=== PATIENT | female | born 2000 | race African-American/Black ===

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

== ENCOUNTER 2018-02-04 20:13 | Inpatient (IN) ==
[2018-02-04] MEDS ORDERED: Sodium Chlor 0.9% Inj 500 ML IV.SIG PRN (22:11)
[2018-02-04] MEDS ORDERED: fentaNYL Citrate Inj 100 MCG/2 ML Ampul IV.PUSH PRN ×2 (22:11)
[2018-02-04] MEDS ORDERED: Sod Chloride 0.9% Inj 1,000 ML IV.CONT PRN (22:11)
[2018-02-04] MEDS ORDERED: Oxytocin 30 Units/500ml Premix 30 UNITS/500 ML BAG IV.SIG ONE (22:11)
[2018-02-04] MEDS ORDERED: Naloxone Inj 0.4 MG/ML Vial IV.PUSH PRN (22:11)
[2018-02-04] MEDS ORDERED: Oxytocin 30 Units/500ml Premix 30 UNITS/500 ML BAG IV.SIG PRN (22:14)
[2018-02-04] MEDS ORDERED: Citric Acid/Sodium Citrate Liq 30 ML UDC PO SCH (22:15)
[2018-02-04 22:36] LABS: Baso % (Auto) 0.2 % (0.0-2.0); Eos # (Auto) 0.1 th/mm3 (0.0-0.4); Hematocrit 32.9 % (35.0-46.0); Hemoglobin 10.3 gm/dL (11.6-15.3); Lymph # (Auto) 2.3 th/mm3 (1.0-4.8); Mean Corpuscular HGB Conc 31.4 % (32.0-36.0); Mean Corpuscular Hemoglobin 21.1 pg (27.0-34.0); Mean Corpuscular Volume 67.2 fL (80.0-100.0); Mean Platelet Volume 10.3 fL (7.0-11.0); Mono # (Auto) 0.7 th/mm3 (0.0-0.9); Mono % (Auto) 8.5 % (0.0-8.0); Neut # (Auto) 5.3 th/mm3 (1.8-7.7); Neut % (Auto) 63.3 % (16.0-70.0); Platelet Count 213 th/mm3 (150-450); Red Cell Distribution Width 16.8 % (11.6-17.2); White Blood Count 8.4 th/mm3 (4.0-11.0)
[2018-02-04] MEDS ORDERED: Zolpidem Tartrate 5 MG Tablet PO ONE (22:36)
--- NOTE | 2018-02-04 22:36 | P.HPOB ---
History of Present Illness Primary Care Physician: NOT REQUIRED Chief Complaint: postdates History of Present Illness: 17 year old female at 41 weeks by ultrasound presents for induction of labor. No current complaints. Denies SOB, CP, TREJO, changes in vision. No loss of fluids, vaginal bleeding, decreased movement, or contractions. She has care at [facility] and was seen there on Tuesday and told to come in this evening for induction of labor. Her has been uncomplicated. She is GBS (+). She had trichomonas during , was treated, and then was retested and negative. No previous abnormal PAP smears. Weeks Gestation:: 41 Para: 0 : 1 Last menstrual period: 04/23/2017 - Inpatient Certification I certify that the inpatient services were ordered in accordance with Medicare regulations governing the order. This includes certification that hospital inpatient services are reasonable and necessary and in the case of services not specified as inpatient-only under 42 CFR 419.22(n), that they are appropriately provided as inpatient services in accordance to with the 2-midnight benchmark under 43 CFR 412.3(e) Estimated Total Length of Stay (Days): 2 Plans for Post Hospital Care: Home Review of Systems Constitutional: Denies chills Eyes: Denies change in vision Cardiovascular: Denies chest pain Respiratory: Denies shortness of breath Gastrointestinal: Denies abdominal pain Neurologic: Denies headache(s) PMFSH - Medical / Surgical Hx Neg / Unobtainable Medical Problems Denied: Yes Surgical History: No Previous Surgery - Tobacco History Smoking Status: Never smoker - Alcohol History How Often Do You Have a Drink Containing Alcohol: Never - Substance Use Type Marijuana Last Used: week ago Medications and Allergies Active Medications: Active Medications Citric Acid/Sodium Citrate (Sodium Citrate/Citric Acid Liq) 30 ml 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 [facility] Stop: 02/08/18 22:14 Fentanyl Citrate (Fentanyl Inj) 50 mcg IV.PUSH Q1H PRN PRN Reason: Pain Scale 3 - 5 Fentanyl Citrate (Fentanyl Inj) 100 mcg IV.PUSH Q1H PRN PRN Reason: PAIN SCALE 6 TO 10 Lactated Ringer's (Lr 1000 Ml Inj) 1,000 mls @ 125 mls/hr IV.CONT .Q8H [facility] Sodium Chloride (Ns Inj) 500 mls @ 1,000 mls/hr IV.SIG UNSCH PRN PRN Reason: SEE LABEL COMMENTS Sodium Chloride (Ns Inj) 1,000 mls @ 100 mls/hr IV.CONT .Q10H PRN PRN Reason: SEE LABEL COMMENTS Oxytocin (Pitocin 30 Units/Ns 500 Ml Premix) 30 units in 500 mls @ 999 mls/hr IV.SIG BOLUS ONE Stop: 02/04/18 22:41 Oxytocin (Pitocin 30 Units/Ns 500 Ml Premix) 30 units in 500 mls @ 2 mls/hr IV.SIG TITRATE PRN; Protocol PRN Reason: For induction of labor Penicillin G Potassium 5,000, (000 unit/ Sodium Chloride) 100 mls @ 200 mls/hr IV.SIG ONCE ONE Stop: 02/04/18 23:29 Penicillin G Potassium 2,500, (000 unit/ Sodium Chloride) 100 mls @ 200 mls/hr IV.SIG Q4H EDI Lactated Ringer's (Lr 1000 Ml Inj) 1,000 mls @ 3,000 mls/hr IV.SIG UNSCH PRN PRN Reason: compromise or epidural Lidocaine HCl (Xylocaine 1% Inj) 0.1 ml I-DERMAL PRN PRN PRN Reason: For IV start Stop: 02/07/18 22:10 Lidocaine HCl (Xylocaine 1% Inj) 10 ml INFILTRATN PRN PRN PRN Reason: For episiotomy repair Stop: 02/06/18 22:10 Mineral Oil (Muri-Lube Oil) 10 ml TOPICAL PRN PRN PRN Reason: PRN perineal massage Naloxone HCl (Narcan Inj) 0.1 mg IV.PUSH Q2M PRN PRN Reason: for opiate reversal Sodium Chloride (Ns Flush) 2 ml IV.FLUSH PRN PRN PRN Reason: FLUSH AFTER USING IV ACCESS Sodium Chloride (Ns Flush) 2 ml IV.FLUSH BID EDI Allergies Allergy/AdvReac Type Severity Reaction Status Date / Time No Known Allergies Allergy Uncoded 04/17/17 22:36 Home Medications Medication Instructions Recorded Confirmed Type prenat.vits,marlee,[id number] 02/04/18 History [ Vitamin] Exam Vital signs: Vital Signs 02/04/18 20:50 02/04/18 20:55 02/04/18 21:10 Temperature 98.3 F Pulse Rate 84 89 87 Respiratory Rate 16 16 Blood Pressure 124/84 Intake & Output 02/04/18 02/04/18 02/05/18 06:59 18:59 06:59 Weight 91 kg Narrative: GENERAL: Well-nourished, well-developed patient. SKIN: Warm and dry. HEAD: Normocephalic and atraumatic. EYES: No scleral icterus. No injection or drainage. ENT: No nasal drainage noted. Mucous membranes pink. Airway patent. NECK: Supple, trachea midline. No JVD. CARDIOVASCULAR: Regular rate and rhythm without murmurs, gallops, or rubs. RESPIRATORY: Breath sounds equal bilaterally. No accessory muscle use. BREASTS: Bilateral exam showed no masses , no retractions, no nipple discharge. ABDOMEN/GI: Abdomen soft, non-tender, bowel sounds present, no rebound, no guarding GENITOURINARY: Cervix: posterior Dilatation: 0 Effacement: 60 Station: -2 Presentation: vertex Membranes: intact Uterine Contractions: none FHT's: Category: 2 (tachycardia) Baseline: 165 Reactive: yes Variability: moderate Decels: none EXTREMITIES: No cyanosis or edema. BACK: Nontender without obvious deformity. No CVA tenderness. NEUROLOGICAL: Awake and alert. Motor and sensory grossly within normal limits. Five out of 5 muscle strength in all muscle groups. Normal speech. Caprini VTE Risk Assessment Caprini VTE Risk Assessment: No/Low Risk (score <= 1) Caprini Risk Assessment Model: Point Value = 1 Point Value = 2 Point Value = 3 Point Value = 5 Age 41-60 Minor surgery BMI > 25 kg/m2 Swollen legs Varicose veins or History of unexplained or recurrent spontaneous Oral contraceptives or hormone replacement Sepsis (< 1 month) Serious lung disease, including pneumonia (< 1 month) Abnormal pulmonary function Acute myocardial infarction Congestive heart failure (< 1 month) History of inflammatory bowel disease Medical patient at bed rest Age 61-74 Arthroscopic surgery Major open surgery (> 45 min) Laparoscopic surgery (> 45 min) Malignancy Confined to bed (> 72 hours) Immobilizing plaster cast Central venous access Age >= 75 History of VTE Family history of VTE Factor V Leiden Prothrombin [id number] Lupus anticoagulant Anticardiolipin antibodies Elevated serum homocysteine Heparin-induced thrombocytopenia Other congenital or acquired thrombophilia Stroke (< 1 month) Elective arthroplasty Hip, pelvis, or leg fracture Acute spinal cord injury (< 1 month) Prophylaxis Regimen: Total Risk Factor Score Risk Level Prophylaxis Regimen 0-1 Low Early ambulation 2 Moderate Order ONE of the following: *Sequential Compression Device (SCD) *Heparin 5000 units SQ BID 3-4 Higher Order ONE of the following medications: *Heparin 5000 units SQ TID *Enoxaparin/Lovenox 40 mg SQ daily (WT < 150 kg, CrCl > 30 mL/min) *Enoxaparin/Lovenox 30 mg SQ daily (WT < 150 kg, CrCl > 10-29 mL/min) *Enoxaparin/Lovenox 30 mg SQ BID (WT < 150 kg, CrCl > 30 mL/min) AND/OR *Sequential Compression Device (SCD) 5 or more Highest Order ONE of the following medications: *Heparin 5000 units SQ TID (Preferred with Epidurals) *Enoxaparin/Lovenox 40 mg SQ daily (WT < 150 kg, CrCl > 30 mL/min) *Enoxaparin/Lovenox 30 mg SQ daily (WT < 150 kg, CrCl > 10-29 mL/min) *Enoxaparin/Lovenox 30 mg SQ BID (WT < 150 kg, CrCl > 30 mL/min) AND *Sequential Compression Device (SCD) Assessment and Plan - Diagnosis (1) Post-dates Code(s): O48.0 - Post-term Status: Acute - Plan 17 year old female at 41 weeks by ultrasound presents for induction of labor. 1. Post dates -Admit to labor and delivery -place Cervidil -start oxytocin 2-2 2. GBS (+) -start penicillin X 2
[2018-02-04] MEDS ORDERED: Penicillin G Potassium Inj 5,000,000 UNIT in Sodium Chloride 0.9% Inj 100 ML IV.SIG ONE (23:00)
[2018-02-04 23:10] LABS: Bacteria,Urine Rare /hpf; Bilirubin,Urine Negative (Negative); Clarity,Urine Clear (Clear); Color,Urine Yellow (Yellw/Straw); Glucose,Urine (UA) Negative (Negative); Leukocyte Esterase,Urine Negative (Negative); Mucus,Urine Few /lpf (Occasional); Nitrite,Urine Negative (Negative); Specific Gravity,Urine 1.017 (1.002-1.035); Squamous Epithelial Cell,Urine 2 /hpf (0-5)
[2018-02-04 23:13] LABS: Amphetamine Urine With Conf Neg (Neg); Benzodiazepine Urine With Conf Neg (Neg)
[2018-02-05] MEDS ORDERED: Penicillin G Potassium Inj 2,500,000 UNIT in Sodium Chlor 0.9% Inj 100 ML IV.SIG SCH (03:00)
--- NOTE | 2018-02-05 07:26 | P.OBLABOR ---
Subjective Interval history: Patient doing well this AM. No problems to report. No pain/cxns. Objective Vital Signs: Vital Signs - 8 hr 02/04/18 23:40 02/04/18 23:45 02/05/18 04:43 Temperature 98.1 F Pulse Rate 78 87 Respiratory Rate 18 18 Blood Pressure 117/47 L 123/75 02/05/18 04:45 Temperature 98.3 F Pulse Rate Respiratory Rate Blood Pressure Objective: Pelvic Exam: Cervix: [3-4 cm] Dilatation: [80] Effacement: [-2] Station: [-] Presentation: [-] Membranes: [intact] Uterine Contractions: [-] FHT's: Category: [1] Baseline: [130] Reactive: [-] Variability: [-] Decels: [-] Assessment and Plan - Diagnosis (1) Post-dates Code(s): O48.0 - Post-term Status: Acute - Plan 17 year old female at 41 weeks by ultrasound presents for induction of labor. 1. Post dates -Admit to labor and delivery -place Cervidil -start oxytocin 2-2 2. GBS (+) -start penicillin X 2
[2018-02-05] MEDS ORDERED: Measles/Mumps/Rubella Vaccine Inj 0.5 ML Vial SQ ONE (16:00)
[2018-02-05] MEDS ORDERED: Diphtheria/Tetanus/Pertussis Vaccine Inj 0.5 ML Syringe IM ONE (16:00)
--- NOTE | 2018-02-05 17:16 | P.OBLABOR ---
Subjective Interval history: Notes increased contractions. Objective Vital Signs: Vital Signs - 8 hr 02/05/18 09:39 02/05/18 09:55 02/05/18 14:20 Temperature 99.1 F Pulse Rate 81 90 Respiratory Rate 18 Blood Pressure 109/66 139/117 H 02/05/18 14:40 02/05/18 15:00 02/05/18 16:15 Temperature 97.8 F Pulse Rate 99 H 79 81 Respiratory Rate 18 Blood Pressure 114/61 115/61 115/59 L 02/05/18 16:35 02/05/18 17:00 Temperature Pulse Rate 90 103 H Respiratory Rate Blood Pressure 143/85 H 133/91 H Objective: Pelvic Exam: Cervix: [-] Dilatation: [3-] Effacement: [-80] Station: [-] Presentation: [-] Membranes: [intact] Uterine Contractions: [-irreg] FHT's: Category: [-1] Baseline: [-150] Reactive: [-] Variability: [mod-] Decels: [-] Assessment and Plan - Plan Assessment: 41 week induction in prodromal labor Plan: Continue Pitocin augmentation
[2018-02-05] MEDS ORDERED: fentaNYL 2MCG-Bupiv 0.125% Epi 150 ML EPIDURAL ONE (19:06)
[2018-02-05] MEDS ORDERED: Zolpidem Tartrate 5 MG Tablet PO PRN (23:03)
[2018-02-05] MEDS ORDERED: Naloxone Inj 0.4 MG/ML Vial IV.PUSH PRN (23:03)
[2018-02-05] MEDS ORDERED: Acetaminophen 325 MG Tablet PO PRN (23:03)
[2018-02-05] MEDS ORDERED: Bisacodyl 10 MG Supp RECTAL PRN (23:03)
--- NOTE | 2018-02-05 23:03 | P.OBDELI ---
Weeks Gestation: 41 Medical Induction of Labor: Yes (Postdates) Medical Induction Start Date: 02/04/18 Artificial Rupture of Membrane: Yes Artificial ROM Date: 02/05/18 Anesthesia: Epidural Episiotomy: none Vaginal Delivery: Normal Presentation: Occiput anterior Nuchal Cord: x1 Delayed Cord Clamping (45 sec): Yes Placenta: Spontaneous delivery, Intact Laceration: Vaginal, 1 deg, 2 deg Repair: Chromic interrupted Estimated blood loss (mL): 200 Infant: Male Additional Information: Mother pushed effectively to deliver the OA vertex over an intact perineum. The shoulders were delivered by maternal effort without delay. The infant was passed to maternal abdomen were delayed cord clamping was accomplished. The placenta passed spontaneously. It was grossly normal and apparently intact. Hemostasis was excellent with massage and IV Pitocin solution. Estimated blood loss 200 cc. Repair of a second-degree left vaginal laceration was accomplished with 3-0 chromic.
[2018-02-05] MEDS ORDERED: Oxytocin 30 Units/500ml Premix 30 UNITS/500 ML BAG IV.CONT SCH (23:15)
[2018-02-05] MEDS ORDERED: fentaNYL 2MCG-Bupiv 0.125% Epi 150 ML EPIDURAL PRN (23:17)
[2018-02-05] MEDS ORDERED: fentaNYL Citrate Inj 100 MCG/2 ML Ampul EPIDURAL ONE (23:17)
[2018-02-06] MEDS: Witch Hazel 50%/Glyderin 12.5% 40 Pad Jar RECTAL PRN (01:19)
[2018-02-06] MEDS: Benzocaine 20% Top Spray 60 ML Can TOPICAL PRN (01:20)
[2018-02-06] MEDS: Senna/Docusate Sodium 8.6/50 MG Tablet PO SCH (08:37)
--- NOTE | 2018-02-06 09:16 | P.PNOB ---
Subjective Interval history: Patient is a 17-year-old delivered at 41 weeks and 1 days. Patient is day 1 after . Patient's pain is well-controlled. Patient reports eating and drinking without any nausea or vomiting. Patient reports minimal bleeding. Patient has passed gas but no bowel movements. Patient is walking without lower extremity pain or shortness of breath. Patient reports desire for contraception and breast-feeding. Objective Vital Signs/I&O: Vital Signs 02/05/18 09:39 02/05/18 09:55 02/05/18 14:20 Temperature 99.1 F Pulse Rate 81 90 Respiratory Rate 18 Blood Pressure 109/66 139/117 H 02/05/18 14:40 02/05/18 15:00 02/05/18 16:15 Temperature 97.8 F Pulse Rate 99 H 79 81 Respiratory Rate 18 Blood Pressure 114/61 115/61 115/59 L 02/05/18 16:35 02/05/18 17:00 02/05/18 17:25 Temperature Pulse Rate 90 103 H 93 H Respiratory Rate Blood Pressure 143/85 H 133/91 H 02/05/18 17:40 02/05/18 18:20 02/05/18 18:55 Temperature Pulse Rate 95 H 85 83 Respiratory Rate Blood Pressure 116/85 131/64 106/65 02/05/18 19:10 02/05/18 19:14 02/05/18 19:29 Temperature Pulse Rate 89 118 H Respiratory Rate 18 Blood Pressure 107/86 122/83 02/05/18 19:45 02/05/18 19:46 02/05/18 19:50 Temperature Pulse Rate 98 H 108 H 110 H Respiratory Rate Blood Pressure 116/67 85/63 L 117/69 02/05/18 20:03 02/05/18 20:15 02/05/18 20:25 Temperature 98.2 F Pulse Rate 105 H 102 H 108 H Respiratory Rate 18 Blood Pressure 130/78 129/81 138/82 02/05/18 20:50 02/05/18 21:01 02/05/18 21:20 Temperature Pulse Rate 102 H 102 H 99 H Respiratory Rate 18 18 Blood Pressure 135/78 117/62 122/65 02/05/18 21:30 02/05/18 21:46 02/05/18 22:00 Temperature Pulse Rate 98 H 97 H 103 H Respiratory Rate 18 Blood Pressure 121/58 L 115/66 103/67 02/05/18 22:03 02/05/18 22:44 02/05/18 22:45 Temperature Pulse Rate 98 H 101 H Respiratory Rate 18 18 Blood Pressure 111/56 L 116/65 02/05/18 23:03 02/05/18 23:16 02/05/18 23:35 Temperature Pulse Rate 94 H 97 H 100 H Respiratory Rate 18 18 Blood Pressure 101/48 L 76/42 L 02/05/18 23:45 02/06/18 00:05 02/06/18 00:18 Temperature Pulse Rate 105 H 93 H 83 Respiratory Rate 18 18 Blood Pressure 106/65 102/46 L 115/53 L 02/06/18 00:20 02/06/18 00:31 02/06/18 01:20 Temperature 98.2 F 98.2 F Pulse Rate 88 92 H Respiratory Rate 18 18 Blood Pressure 109/64 111/68 02/06/18 08:00 Temperature 98.2 F Pulse Rate 80 Respiratory Rate 18 Blood Pressure 117/70 Intake & Output 02/05/18 02/06/18 02/06/18 18:59 06:59 18:59 Intake Total 1000 / 1000 1000 / 1000 Balance 1000 / 1000 1000 / 1000 Intake: IV 1000 / 1000 1000 / 1000 LR 1000 mL Inj 1,000 ML @ 125 1000 / 1000 1000 / 1000 mls/hr IV.CONT .Q8H [facility] Rx#: [id number] Result Diagrams: 02/04/18 21:20 Objective Remarks: GENERAL: Well-nourished, well-developed patient. CARDIOVASCULAR: Regular rate and rhythm without murmurs, gallops, or rubs. RESPIRATORY: Breath sounds equal bilaterally. No accessory muscle use. ABDOMEN/GI: Abdomen soft, non-tender. Fundus: Firm, non-tender at umbilicus. GENITOURINARY: Light to moderate bleeding. EXTREMITIES: No cyanosis or edema, non-tender, without signs of DVT. 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 [facility] Stop: 02/08/18 22:14 Ephedrine Sulfate (Ephedrine/Ns Syringe) 10 mg IV.PUSH UNSCH PRN PRN Reason: SEE LABEL COMMENTS Stop: 02/06/18 23:17 Fentanyl Citrate (Fentanyl Inj) 50 mcg IV.PUSH Q1H PRN PRN Reason: Pain Scale 3 - 5 Fentanyl Citrate (Fentanyl Inj) 100 mcg IV.PUSH Q1H PRN PRN Reason: PAIN SCALE 6 TO 10 Last Admin: 02/05/18 17:52 Dose: 100 mcg Lactated Ringer's (Lr 1000 Ml Inj) 1,000 mls @ 125 mls/hr IV.CONT .Q8H [facility] Last Admin: 02/05/18 20:19 Dose: 125 mls/hr Sodium Chloride (Ns Inj) 500 mls @ 1,000 mls/hr IV.SIG UNSCH PRN PRN Reason: SEE LABEL COMMENTS Sodium Chloride (Ns Inj) 1,000 mls @ 100 mls/hr IV.CONT .Q10H PRN PRN Reason: SEE LABEL COMMENTS Oxytocin (Pitocin 30 Units/Ns 500 Ml Premix) 30 units in 500 mls @ 2 mls/hr IV.SIG TITRATE PRN; Protocol PRN Reason: For induction of labor Last Admin: 02/05/18 14:09 Dose: 2 milliunit/min, 2 mls/hr Penicillin G Potassium 2,500, (000 unit/ Sodium Chloride) 100 mls @ 200 mls/hr IV.SIG Q4H [facility] Last Admin: 02/05/18 18:22 Dose: 200 mls/hr Lactated Ringer's (Lr 1000 Ml Inj) 1,000 mls @ 3,000 mls/hr IV.SIG UNSCH PRN PRN Reason: compromise or epidural Last Admin: 02/05/18 01:05 Dose: 3,000 mls/hr Fentanyl/Bupivacaine/Sodium Chlor (Fentanyl 2 Mcg-Bupiv 0.125% Epi) 150 mls @ 12 mls/hr EPIDURAL PRN PRN PRN Reason: for Labor Pain Ibuprofen (Motrin) 800 mg PO Q8H PRN PRN Reason: For cramping Last Admin: 02/06/18 08:37 Dose: 800 mg Lactulose (Lactulose Liq) 30 ml PO DAILY PRN PRN Reason: SEVERE CONSITIPATION Lidocaine HCl (Xylocaine 1% Inj) 0.1 ml I-DERMAL PRN PRN PRN Reason: For IV start Stop: 02/07/18 22:10 Lidocaine HCl (Xylocaine 1% Inj) 10 ml INFILTRATN PRN PRN PRN Reason: For episiotomy repair Stop: 02/06/18 22:10 Mineral Oil (Muri-Lube Oil) 10 ml TOPICAL PRN PRN PRN Reason: PRN perineal massage Miscellaneous Information (Misc Information) 1 each OTHER UNSCH PRN PRN Reason: SEE LABEL COMMENTS Stop: 02/06/18 23:17 Miscellaneous Information (Misc Information) 1 each OTHER UNSCH PRN PRN Reason: SEE LABEL COMMENTS Stop: 02/06/18 23:17 Naloxone HCl (Narcan Inj) 0.1 mg IV.PUSH Q2M PRN PRN Reason: for opiate reversal Naloxone HCl (Narcan Inj) 0.1 mg IV.PUSH Q2M PRN PRN Reason: for opiate reversal Ondansetron HCl (Zofran Odt) 4 mg PO Q6H PRN PRN Reason: NAUSEA Ondansetron HCl (Zofran Odt) 4 mg PO Q6H PRN PRN Reason: NAUSEA OR VOMITING Oxycodone/Acetaminophen (Percocet 5/325 Mg) 2 tab PO Q4H PRN PRN Reason: PAIN SCALE 6 TO 10 Senna/Docusate Sodium (Heidi-Colace) 1 tab PO BID EDI Last Admin: 02/06/18 08:37 Dose: 1 tab Sennosides (Senokot) 17.2 mg PO Q12H PRN PRN Reason: Moderate Constipation Sodium Chloride (Ns Flush) 2 ml IV.FLUSH PRN PRN PRN Reason: FLUSH AFTER USING IV ACCESS Last Admin: 02/06/18 00:10 Dose: 2 ml Sodium Chloride (Ns Flush) 2 ml IV.FLUSH BID EDI Sodium Chloride (Ns Flush) 2 ml IV.FLUSH BID EDI Sodium Chloride (Ns Flush) 2 ml IV.FLUSH PRN PRN PRN Reason: FLUSH AFTER USING IV ACCESS Witch Bre/Glycerin (Tucks Pads) 1 applicatio RECTAL QID PRN PRN Reason: HEMORRHOIDS Last Admin: 02/06/18 01:19 Dose: 1 applicatio Zolpidem Tartrate (Ambien) 5 mg PO HS PRN PRN Reason: SLEEP Assessment and Plan - Plan Assessment: 41 week induction in prodromal labor Plan: Continue Pitocin augmentation - Attending Attestation The exam, history, and the medical decision-making described in the above note were completed with the assistance of the resident physician. I reviewed and agree with the findings presented. I attest that I had a [id number] encounter with the patient on the same day, and personally performed and documented my assessment and findings in the medical record.
[2018-02-07] MEDS: Senna/Docusate Sodium 8.6/50 MG Tablet PO SCH (08:09)
--- NOTE | 2018-02-07 08:17 | P.PNOB ---
Subjective Interval history: Patient is a 17-year-old delivered at 41 weeks and 1 days. Patient is day 2 after . Patient's pain is well-controlled. Patient reports eating and drinking without any nausea or vomiting. Patient reports minimal bleeding. Patient has passed gas and bowel movements. Patient is walking without lower extremity pain or shortness of breath. Patient reports desire for contraception arrange as outpatient. Objective Vital Signs/I&O: Vital Signs 02/06/18 20:47 Temperature 98.3 F Pulse Rate 82 Respiratory Rate 18 Blood Pressure 133/62 Result Diagrams: 02/04/18 21:20 Objective Remarks: GENERAL: Well-nourished, well-developed patient. CARDIOVASCULAR: Regular rate and rhythm without murmurs, gallops, or rubs. RESPIRATORY: Breath sounds equal bilaterally. No accessory muscle use. ABDOMEN/GI: Abdomen soft, non-tender. Fundus: Firm, non-tender at umbilicus. GENITOURINARY: Light to moderate bleeding. EXTREMITIES: No cyanosis or edema, non-tender, without signs of DVT. Medications and IVs: Active Medications Acetaminophen (Tylenol) 650 mg PO Q4H PRN PRN Reason: PAIN SCALE 1 TO 2 Al Hydroxide/Mg Hydroxide (Milk Of Magnesia Liq) 30 ml PO Q12H PRN PRN Reason: Mild Constipation Benzocaine (Americaine 20% [place]) 1 spray TOPICAL Q4H PRN PRN Reason: For Perineum Discomfort Last Admin: 02/06/18 01:20 Dose: 1 spray Bisacodyl (Dulcolax Supp) 10 mg RECTAL DAILY PRN PRN Reason: SEVERE CONSITIPATION Citric Acid/Sodium Citrate (Sodium Citrate/Citric Acid Liq) 30 ml PO [employer] [facility] Stop: 02/08/18 22:14 Fentanyl Citrate (Fentanyl Inj) 50 mcg IV.PUSH Q1H PRN PRN Reason: Pain Scale 3 - 5 Fentanyl Citrate (Fentanyl Inj) 100 mcg IV.PUSH Q1H PRN PRN Reason: PAIN SCALE 6 TO 10 Last Admin: 02/05/18 17:52 Dose: 100 mcg Lactated Ringer's (Lr 1000 Ml Inj) 1,000 mls @ 125 mls/hr IV.CONT .Q8H [facility] Last Admin: 02/05/18 20:19 Dose: 125 mls/hr Sodium Chloride (Ns Inj) 500 mls @ 1,000 mls/hr IV.SIG UNSCH PRN PRN Reason: SEE LABEL COMMENTS Sodium Chloride (Ns Inj) 1,000 mls @ 100 mls/hr IV.CONT .Q10H PRN PRN Reason: SEE LABEL COMMENTS Oxytocin (Pitocin 30 Units/Ns 500 Ml Premix) 30 units in 500 mls @ 2 mls/hr IV.SIG TITRATE PRN; Protocol PRN Reason: For induction of labor Last Admin: 02/05/18 14:09 Dose: 2 milliunit/min, 2 mls/hr Penicillin G Potassium 2,500, (000 unit/ Sodium Chloride) 100 mls @ 200 mls/hr IV.SIG Q4H EDI Last Admin: 02/05/18 18:22 Dose: 200 mls/hr Lactated Ringer's (Lr 1000 Ml Inj) 1,000 mls @ 3,000 mls/hr IV.SIG UNSCH PRN PRN Reason: compromise or epidural Last Admin: 02/05/18 01:05 Dose: 3,000 mls/hr Fentanyl/Bupivacaine/Sodium Chlor (Fentanyl 2 Mcg-Bupiv 0.125% Epi) 150 mls @ 12 mls/hr EPIDURAL PRN PRN PRN Reason: for Labor Pain Ibuprofen (Motrin) 800 mg PO Q8H PRN PRN Reason: For cramping Last Admin: 02/07/18 03:55 Dose: 800 mg Lactulose (Lactulose Liq) 30 ml PO DAILY PRN PRN Reason: SEVERE CONSITIPATION Lidocaine HCl (Xylocaine 1% Inj) 0.1 ml I-DERMAL PRN PRN PRN Reason: For IV start Stop: 02/07/18 22:10 Mineral Oil (Muri-Lube Oil) 10 ml TOPICAL PRN PRN PRN Reason: PRN perineal massage Naloxone HCl (Narcan Inj) 0.1 mg IV.PUSH Q2M PRN PRN Reason: for opiate reversal Naloxone HCl (Narcan Inj) 0.1 mg IV.PUSH Q2M PRN PRN Reason: for opiate reversal Ondansetron HCl (Zofran Odt) 4 mg PO Q6H PRN PRN Reason: NAUSEA Ondansetron HCl (Zofran Odt) 4 mg PO Q6H PRN PRN Reason: NAUSEA OR VOMITING Oxycodone/Acetaminophen (Percocet 5/325 Mg) 2 tab PO Q4H PRN PRN Reason: PAIN SCALE 6 TO 10 Senna/Docusate Sodium (Heidi-Colace) 1 tab PO BID [facility] Last Admin: 02/07/18 08:09 Dose: Not Given Sennosides (Senokot) 17.2 mg PO Q12H PRN PRN Reason: Moderate Constipation Sodium Chloride (Ns Flush) 2 ml IV.FLUSH PRN PRN PRN Reason: FLUSH AFTER USING IV ACCESS Last Admin: 02/06/18 00:10 Dose: 2 ml Sodium Chloride (Ns Flush) 2 ml IV.FLUSH BID [facility] Last Admin: 02/07/18 08:11 Dose: Not Given Sodium Chloride (Ns Flush) 2 ml IV.FLUSH BID [facility] Last Admin: 02/07/18 08:11 Dose: Not Given Sodium Chloride (Ns Flush) 2 ml IV.FLUSH PRN PRN PRN Reason: FLUSH AFTER USING IV ACCESS Witch Bre/Glycerin (Tucks Pads) 1 applicatio RECTAL QID PRN PRN Reason: HEMORRHOIDS Last Admin: 02/06/18 01:19 Dose: 1 applicatio Zolpidem Tartrate (Ambien) 5 mg PO HS PRN PRN Reason: SLEEP Assessment and Plan - Diagnosis (1) Post-dates Code(s): O48.0 - Post-term Status: Acute Plan: Patient is a 17-year-old delivered at 41 weeks and 1 days. Patient is day 1 after . Patient was counseled to do 6 weeks of pelvic rest. Patient was counseled to follow up in 6 weeks. Patient requested follow-up and contraception. --AF VSS --Continue routine care --Motrin and Tylenol when necessary for pain --Encourage OOB --Pelvic rest for 6 weeks will need follow-up appointment at that time. --Contraception: We will arrange as outpatient --Anticipate discharge possibly today - Plan Assessment: 41 week induction in prodromal labor Plan: Continue Pitocin augmentation
[2018-02-07] MEDS: Witch Hazel 50%/Glyderin 12.5% 40 Pad Jar RECTAL PRN (10:31)
[2018-02-07] MEDS: Benzocaine 20% Top Spray 60 ML Can TOPICAL PRN (10:32)
[2018-02-07 20:02] VITALS: BP 101/54; PULSE 78; RESP 20; TEMP 97.9
== END 2018-02-07 12:48 | disposition home or self-care (01) ==
LOC: H2E 20:13 → H1EA 02-06 00:49
PROVIDERS: ADMIT Obstetrics & Gynecology; ATTEND Obstetrics & Gynecology